=== PATIENT | female | born 1945 | race Caucasian/White ===

== ENCOUNTER 2019-11-08 15:50 | Inpatient (IN) | payer MEDICARE, MEDICAID ==
[~2019-11-08] VITALS: Ht 154.9 cm; Wt 71.7 kg
[2019-11-08] MEDS ORDERED: SODIUM CHLORIDE 0.9% 1,000 ML IV ONE ×2 (17:00→17:30)
[2019-11-08 17:01] LABS: BASOPHILS % 0.3 % (0.0-2.0); HEMATOCRIT. 47.6 % (36.0-48.0); LYMPHOCYTES % 17.9 % (20.0-50.0); MEAN CORPUSCULAR HEMOGLOBIN 33.4 pg (28.0-32.0); MEAN CORPUSCULAR VOLUME 99.2 fL (81.0-99.0); MEAN PLATELET VOLUME 8.9 fl (7.4-10.4); MONOCYTES % 6.5 % (2.0-8.0); NEUTROPHILS % 75.3 % (40.0-76.0); PLATELET 182 x1000/uL (130-400); RED BLOOD CELL COUNT 4.79 mill/uL (4.2-5.4); RED CELL DISTRIBUTION WIDTH 12.2 % (11.6-14.6)
[2019-11-08 17:06] LABS: CHLORIDE 87 mEq/L (98-107)
[2019-11-08 17:07] LABS: INR 1.1; PROTHROMBIN TIME 12.4 sec (9.6-11.0)
[2019-11-08 17:34] LABS: BETA HYDROXYBUTYRATE 1.7 mMol/L (0.0-0.3)
[2019-11-08] MEDS ORDERED: INSULIN REGULAR (DRIP) 100 UNITS in SODIUM CHLORIDE 0.9% 99 ML IV ONE ×2 (17:45→18:00)
[2019-11-08] MEDS ORDERED: SODIUM CHLORIDE 0.9% 1,000 ML IV STA (18:24)
[2019-11-08 19:00] LABS: CLARITY URINE CLEAR (CLEAR); COLOR URINE YELLOW (YELLOW); KETONES URINE NEGATIVE (NEGATIVE); LEUKOCYTE ESTERASE URINE NEGATIVE (NEGATIVE); NITRITE URINE NEGATIVE (NEGATIVE); OCCULT BLOOD URINE NEGATIVE (NEGATIVE); PROTEIN URINE NEGATIVE (NEGATIVE); SPECIFIC GRAVITY URINE 1.028 (1.005-1.030); UROBILINOGEN URINE 0.2 E.U./dL (0.2-1.0)
[2019-11-08] MEDS ORDERED: INSULIN REGULAR (DRIP) 100 UNITS in SODIUM CHLORIDE 0.9% 99 ML IV PRN (19:00)
[2019-11-08] MEDS ORDERED: INSULIN REGULAR (DRIP) 100 UNITS in SODIUM CHLORIDE 0.9% 100 ML IV SCH (19:53)
[2019-11-08] MEDS ORDERED: ZOLPIDEM TARTRATE 5MG TABLET PO PRN (20:00)
[2019-11-08] MEDS ORDERED: ONDANSETRON HCL 4MG/2ML INJ IV PRN (20:00)
[2019-11-08] MEDS ORDERED: CLONIDINE 0.1MG TABLET PO PRN (20:00)
[2019-11-08] MEDS ORDERED: DOCUSATE SODIUM 100MG CAPSULE PO PRN (20:00)
[2019-11-08] MEDS ORDERED: MAGNESIUM/ALUMINUM HYDROXIDE/SIMETHICONE 30ML UDC PO PRN (20:00)
[2019-11-08] MEDS ORDERED: DEXTROSE 50% WATER 50ML SYRINGE IV PRN ×2 (20:00)
[2019-11-08] MEDS ORDERED: KETOROLAC 15MG/ML VIAL IV PRN (20:00)
[2019-11-08] MEDS ORDERED: IPRATROPIUM/ALBUTEROL 0.5-3(2.5)MG/3ML NEB ORI PRN (20:00)
[2019-11-08] MEDS ORDERED: GUAIFENESIN 200MG/10ML SUGAR FREE UDC PO PRN (20:00)
[2019-11-08] MEDS ORDERED: NITROGLYCERIN 0.4MG TABLET SL SL PRN (20:00)
[2019-11-08] MEDS ORDERED: ACETAMINOPHEN 325MG TABLET PO PRN (20:00)
[2019-11-08 20:21] LABS: PHOSPHORUS 4.2 mg/dL (2.5-4.9)
[2019-11-08 20:29] LABS: T4 FREE 1.43 ng/dL (0.76-1.46)
[2019-11-08 20:36] LABS: FOLIC ACID (FOLATE) SERUM >20 ng/mL ng/mL (>5.38)
[2019-11-08 20:48] LABS: VITAMIN B12 SERUM 1477 pg/mL (211-911)
[2019-11-08] MEDS ORDERED: AZITHROMYCIN 500 MG in DEXT 5% WATER 250 ML IV SCH (21:00)
[2019-11-08] MEDS ORDERED: BLOOD SUGAR DIAGNOSTIC STRIP TEST SCH (21:00)
[2019-11-09] MEDS ORDERED: SODIUM CHLORIDE 0.9% 1,000 ML IV NR (00:30)
[2019-11-09 00:33] LABS: CHLORIDE 107 mEq/L (98-107)
[2019-11-09 00:39] LABS: PHOSPHORUS 3.1 mg/dL (2.5-4.9)
[2019-11-09 00:41] LABS: CREATINE KINASE 25 IU/L (26-192)
[2019-11-09 00:44] LABS: CREATINE KINASE MB FRACTION < 1.0 ng/mL (0.5-3.6)
[2019-11-09] MEDS ORDERED: FAMOTIDINE 20MG TABLET PO NR (00:45)
[2019-11-09] MEDS: ENOXAPARIN 30MG/0.3ML SYR SUBCUT SCH ×2 (00:47→20:30)
[2019-11-09] MEDS: ASCORBIC ACID 500 MG TABLET PO SCH ×3 (00:48→20:30)
[2019-11-09] MEDS: SODIUM CHLORIDE 0.9% 1,000 ML IV SCH ×4 (02:52→19:24)
[2019-11-09] MEDS ORDERED: DEXTROSE 50% WATER 50ML SYRINGE IV PRN (06:45)
[2019-11-09] MEDS: BLOOD SUGAR DIAGNOSTIC STRIP TEST SCH ×4 (09:25→20:43)
[2019-11-09 09:49] LABS: CREATINE KINASE 24 IU/L (26-192); CREATINE KINASE MB FRACTION < 1.0 ng/mL (0.5-3.6)
[2019-11-09] MEDS ORDERED: CEFTRIAXONE 1 G PREMIX 50 ML IV SCH (10:00)
[2019-11-09] MEDS: INSULIN GLARGINE UD 100 UNITS/ML SYR SUBCUT SCH (10:08)
[2019-11-09] MEDS: ASPIRIN 325MG EC TABLET PO SCH (10:19)
[2019-11-09] MEDS: FAMOTIDINE 20MG TABLET PO SCH (10:19)
[2019-11-09] MEDS: ZINC SULFATE 220 MG ( 50 ) CAPSULE PO SCH (10:19)
[2019-11-09] MEDS: INSULIN LISPRO 100 UNITS/ML SUBCUT SCH ×5 (13:29→20:52)
[2019-11-09 18:20] VITALS: BP 106/58
[2019-11-09 18:30] VITALS: BP 114/75
[2019-11-09 20:00] VITALS: BP 103/65
[2019-11-09] MEDS ORDERED: AZITHROMYCIN 500 MG in DEXT 5% WATER 250 ML IV SCH (20:00)
[2019-11-09 21:51] VITALS: BP 121/63
[2019-11-10] VITALS (11 sets, daily range): BP systolic 101–154; BP diastolic 61–119
[2019-11-10] MEDS: SODIUM CHLORIDE 0.9% 1,000 ML IV SCH ×3 (00:23→21:10)
[2019-11-10] MEDS: INSULIN LISPRO 100 UNITS/ML SUBCUT SCH ×7 (06:27→22:22)
[2019-11-10] MEDS: BLOOD SUGAR DIAGNOSTIC STRIP TEST SCH ×4 (06:28→21:53)
[2019-11-10 06:58] LABS: BASOPHILS % 0.2 % (0.0-2.0); HEMATOCRIT. 36.5 % (36.0-48.0); HEMOGLOBIN. 12.6 g/dL (12.0-16.0); LYMPHOCYTES % 57.8 % (20.0-50.0); MEAN CORPUSCULAR HEMOGLOBIN 33.6 pg (28.0-32.0); MEAN CORPUSCULAR VOLUME 97.3 fL (81.0-99.0); MEAN PLATELET VOLUME 8.5 fl (7.4-10.4); MONOCYTES % 6.5 % (2.0-8.0); NEUTROPHILS % 34.5 % (40.0-76.0); PLATELET 86 x1000/uL (130-400); RED BLOOD CELL COUNT 3.75 mill/uL (4.2-5.4); RED CELL DISTRIBUTION WIDTH 12.4 % (11.6-14.6)
[2019-11-10 08:02] LABS: CHLORIDE 113 mEq/L (98-107)
[2019-11-10] MEDS: ASCORBIC ACID 500 MG TABLET PO SCH ×2 (08:16→21:08)
[2019-11-10] MEDS: FAMOTIDINE 20MG TABLET PO SCH (08:17)
[2019-11-10] MEDS: ASPIRIN 325MG EC TABLET PO SCH (08:17)
[2019-11-10] MEDS: ZINC SULFATE 220 MG ( 50 ) CAPSULE PO SCH (08:17)
[2019-11-10 08:33] LABS: PHOSPHORUS 1.6 mg/dL (2.5-4.9)
[2019-11-10] MEDS: INSULIN GLARGINE UD 100 UNITS/ML SYR SUBCUT SCH (10:31)
[2019-11-10] MEDS: ACETAMINOPHEN 325MG TABLET PO PRN (11:40)
[2019-11-10] MEDS ORDERED: CEFTRIAXONE 1,000 MG in DEXTROSE 5% WATER 50 ML IV SCH (12:00)
[2019-11-10] MEDS: CEFTRIAXONE 1,000 MG in DEXTROSE 5% WATER 50 ML IV SCH (13:07)
[2019-11-10] MEDS: AZITHROMYCIN 500 MG in DEXT 5% WATER 250 ML IV SCH (14:06)
[2019-11-10] MEDS ORDERED: POTASSIUM PHOS,M-BASIC-D-BASIC 20 MMOL in DEXT 5% WATER 243.3333 ML IV NR (22:00)
[2019-11-11] VITALS (20 sets, daily range): BP systolic 109–159; BP diastolic 57–88
[2019-11-11] MEDS: SODIUM CHLORIDE 0.9% 1,000 ML IV SCH ×3 (04:06→15:49)
[2019-11-11] MEDS: ACETAMINOPHEN 325MG TABLET PO PRN (04:34)
[2019-11-11 05:46] LABS: BASOPHILS % 0.2 % (0.0-2.0); EOSINOPHILS % 1.3 % (0.0-5.0); HEMATOCRIT. 35.6 % (36.0-48.0); HEMOGLOBIN. 12.4 g/dL (12.0-16.0); LYMPHOCYTES % 57.4 % (20.0-50.0); MEAN CORPUSCULAR HEMOGLOBIN 33.5 pg (28.0-32.0); MEAN CORPUSCULAR VOLUME 96.5 fL (81.0-99.0); MEAN PLATELET VOLUME 8.5 fl (7.4-10.4); MONOCYTES % 6.7 % (2.0-8.0); NEUTROPHILS % 34.4 % (40.0-76.0); PLATELET 80 x1000/uL (130-400); RED BLOOD CELL COUNT 3.68 mill/uL (4.2-5.4); RED CELL DISTRIBUTION WIDTH 12.3 % (11.6-14.6)
[2019-11-11 06:00] LABS: CHLORIDE 108 mEq/L (98-107)
[2019-11-11 06:10] LABS: PHOSPHORUS 2.5 mg/dL (2.5-4.9)
[2019-11-11] MEDS: BLOOD SUGAR DIAGNOSTIC STRIP TEST SCH ×4 (06:36→20:56)
[2019-11-11] MEDS: INSULIN LISPRO 100 UNITS/ML SUBCUT SCH ×7 (06:56→21:18)
[2019-11-11] MEDS: ASPIRIN 325MG EC TABLET PO SCH (08:38)
[2019-11-11] MEDS: ASCORBIC ACID 500 MG TABLET PO SCH ×2 (08:38→21:17)
[2019-11-11] MEDS: FAMOTIDINE 20MG TABLET PO SCH (08:38)
[2019-11-11] MEDS: ZINC SULFATE 220 MG ( 50 ) CAPSULE PO SCH (08:38)
[2019-11-11] MEDS ORDERED: LACTULOSE 20G/30ML UDC PO SCH (09:00)
[2019-11-11] MEDS: DOCUSATE SODIUM 100MG CAPSULE PO SCH ×2 (09:13→17:27)
[2019-11-11] MEDS ORDERED: INSULIN GLARGINE UD 100 UNITS/ML SYR SUBCUT SCH (11:00)
[2019-11-11] MEDS: CEFTRIAXONE 1,000 MG in DEXTROSE 5% WATER 50 ML IV SCH (12:33)
[2019-11-11] MEDS: AZITHROMYCIN 500 MG in DEXT 5% WATER 250 ML IV SCH (14:21)
[2019-11-11] MEDS ORDERED: POLYETHYLENE GLYCOL 3350 (17GM) 1 DOSE PACK PO SCH (21:00)
[2019-11-12] MEDS ORDERED: ASPI-1497 PO (02:27)
[2019-11-12] MEDS ORDERED: MULT-1146 MT (02:28)
[2019-11-12] MEDS ORDERED: DOCU250C14 MT (02:28)
[2019-11-12] MEDS ORDERED: insulin (02:29)
[2019-11-12] MEDS ORDERED: TOPUD PO (02:30)
== END 2019-11-11 23:45 | DRG 871 ==
LOC: ER 15:50 → 3WST 19:39 → EDBEDREQTM 19:46 → EDBEDREQ 19:46 → SUPCPDRO 19:52 → EDBEDREQSVC 11-09 08:54 → ENRESERV 11-09 17:07
PROVIDERS: ADMIT Internal Medicine; ATTEND Internal Medicine
DX: A41.9 Sepsis, unspecified organism (principal); E11.00 Type 2 diabetes mellitus with hyperosmolarity without nonketotic hyperglycemic-hyperosmolar coma (NKHHC); G92 Toxic encephalopathy; E43 Unspecified severe protein-calorie malnutrition; N17.0 Acute kidney failure with tubular necrosis; E87.1 Hypo-osmolality and hyponatremia; N39.0 Urinary tract infection, site not specified; E87.5 Hyperkalemia; E83.52 Hypercalcemia; E86.0 Dehydration; E87.8 Other disorders of electrolyte and fluid balance, not elsewhere classified; D69.6 Thrombocytopenia, unspecified; I10 Essential (primary) hypertension; E83.39 Other disorders of phosphorus metabolism; E11.42 Type 2 diabetes mellitus with diabetic polyneuropathy; E83.42 Hypomagnesemia; E87.6 Hypokalemia; R26.9 Unspecified abnormalities of gait and mobility; Z68.29 Body mass index [BMI] 29.0-29.9, adult
CPT/HCPCS: 36415; 71045; 80048; 80053; 80061; 81003; 82010; 82550; 82553; 82607; 82746; 82962; 83036; 83540; 83550; 83605; 83735; 83930; 84100; 84439; 84443; 84484; 85025; 93005; 97161; 97166; 99291; J0456; J0696; J1650; J1815; J3490; J7030; J7050; J7060

== ENCOUNTER 2019-11-11 23:40 | Inpatient (IN) | payer MEDICARE, MEDICAID ==
[~2019-11-11] VITALS: Ht 154.9 cm; Wt 70.8 kg
[2019-11-11 23:55] VITALS: BP 140/77
[2019-11-12] MEDS ORDERED: KETOROLAC 15MG/ML VIAL IV PRN (01:00)
[2019-11-12] MEDS ORDERED: IPRATROPIUM/ALBUTEROL 0.5-3(2.5)MG/3ML NEB HHN PRN (01:00)
[2019-11-12] MEDS ORDERED: ONDANSETRON HCL 4MG/2ML INJ IV PRN (01:00)
[2019-11-12] MEDS ORDERED: ACETAMINOPHEN 325MG TABLET PO PRN (01:00)
[2019-11-12] MEDS ORDERED: NITROGLYCERIN 0.4MG TABLET SL SL PRN (01:15)
[2019-11-12] MEDS ORDERED: MAGNESIUM/ALUMINUM HYDROXIDE/SIMETHICONE 30ML UDC PO PRN (01:15)
[2019-11-12] MEDS ORDERED: GUAIFENESIN 200MG/10ML SUGAR FREE UDC PO PRN (01:15)
[2019-11-12] MEDS ORDERED: DEXTROSE 50% WATER 50ML SYRINGE IV PRN (01:15)
[2019-11-12] MEDS ORDERED: CLONIDINE 0.1MG TABLET PO PRN (01:15)
[2019-11-12] MEDS ORDERED: ZOLPIDEM TARTRATE 5MG TABLET PO PRN (01:15)
[2019-11-12] MEDS: SODIUM CHLORIDE 0.9% 1,000 ML IV SCH (02:08)
[2019-11-12] MEDS ORDERED: ASPI-1497 PO (02:27)
[2019-11-12] MEDS ORDERED: DOCU250C14 MT (02:28)
[2019-11-12] MEDS ORDERED: MULT-1146 MT (02:28)
[2019-11-12] MEDS ORDERED: insulin (02:29)
[2019-11-12] MEDS ORDERED: SODIUM CHLORIDE 0.9% INJ 3ML FLUSH IVF ONE (02:30)
[2019-11-12] MEDS ORDERED: TOPUD PO (02:30)
[2019-11-12] MEDS: AZITHROMYCIN 500 MG in DEXT 5% WATER 250 ML IV SCH (02:42)
[2019-11-12] MEDS: CEFTRIAXONE 1,000 MG in DEXTROSE 5% WATER 50 ML IV SCH (04:00)
[2019-11-12] MEDS: BLOOD SUGAR DIAGNOSTIC STRIP TEST SCH ×4 (06:17→21:08)
[2019-11-12 07:30] VITALS: BP 120/58
[2019-11-12] MEDS: DOCUSATE SODIUM 100MG CAPSULE PO SCH ×4 (08:51→17:00)
[2019-11-12] MEDS: ZINC SULFATE 220 MG ( 50 ) CAPSULE PO SCH (08:52)
[2019-11-12] MEDS: ASPIRIN 325MG EC TABLET PO SCH (08:52)
[2019-11-12] MEDS: ASCORBIC ACID 500 MG TABLET PO SCH ×2 (08:52→21:08)
[2019-11-12] MEDS ORDERED: ENOXAPARIN 30MG/0.3ML SYR SUBCUT SCH (09:00)
[2019-11-12] MEDS: INSULIN LISPRO 100 UNITS/ML SUBCUT SCH ×7 (09:00→21:35)
[2019-11-12 09:16] LABS: BASOPHILS % 0.3 % (0.0-2.0); HEMATOCRIT. 36.4 % (36.0-48.0); HEMOGLOBIN. 12.6 g/dL (12.0-16.0); LYMPHOCYTES % 52.6 % (20.0-50.0); MEAN CORPUSCULAR HEMOGLOBIN 33.4 pg (28.0-32.0); MEAN CORPUSCULAR VOLUME 96.2 fL (81.0-99.0); MEAN PLATELET VOLUME 8.4 fl (7.4-10.4); MONOCYTES % 8.6 % (2.0-8.0); NEUTROPHILS % 36.5 % (40.0-76.0); PLATELET 80 x1000/uL (130-400); RED BLOOD CELL COUNT 3.78 mill/uL (4.2-5.4); RED CELL DISTRIBUTION WIDTH 12.3 % (11.6-14.6)
[2019-11-12 09:21] LABS: CHLORIDE 109 mEq/L (98-107)
[2019-11-12] MEDS: INSULIN GLARGINE UD 100 UNITS/ML SYR SUBCUT SCH (10:31)
[2019-11-12] MEDS: MECLIZINE 12.5MG TABLET PO SCH ×2 (12:54→16:37)
[2019-11-12] MEDS: FAMOTIDINE 20MG TABLET PO SCH (12:54)
[2019-11-12] MEDS ORDERED: POTASSIUM CHLORIDE 20MEQ/PACKET PO NR (13:15)
[2019-11-12] MEDS ORDERED: BISACODYL 5MG TABLET PO PRN (19:15)
[2019-11-12] MEDS ORDERED: NA PHOS,M-B/NA PHOS,DI-BA ENEMA 118ML PR PRN (19:15)
[2019-11-12] MEDS ORDERED: LACTULOSE 20G/30ML UDC PO PRN (19:15)
[2019-11-12] MEDS ORDERED: DOCUSATE SODIUM 100MG CAPSULE PO PRN (19:30)
[2019-11-12 20:00] VITALS: BP 107/58
[2019-11-12] MEDS: POLYETHYLENE GLYCOL 3350 (17GM) 1 DOSE PACK PO SCH (21:08)
[2019-11-13] MEDS: AZITHROMYCIN 500 MG in DEXT 5% WATER 250 ML IV SCH (01:27)
[2019-11-13] MEDS: CEFTRIAXONE 1,000 MG in DEXTROSE 5% WATER 50 ML IV SCH (04:04)
[2019-11-13] MEDS: BLOOD SUGAR DIAGNOSTIC STRIP TEST SCH ×4 (06:21→21:41)
[2019-11-13 08:00] VITALS: BP 139/70
[2019-11-13] MEDS: MECLIZINE 12.5MG TABLET PO SCH ×3 (08:11→16:20)
[2019-11-13] MEDS: DOCUSATE SODIUM 100MG CAPSULE PO SCH ×2 (08:12→16:20)
[2019-11-13] MEDS: ZINC SULFATE 220 MG ( 50 ) CAPSULE PO SCH (08:12)
[2019-11-13] MEDS: ASCORBIC ACID 500 MG TABLET PO SCH ×2 (08:12→21:41)
[2019-11-13] MEDS: ASPIRIN 325MG EC TABLET PO SCH (08:12)
[2019-11-13] MEDS: FAMOTIDINE 20MG TABLET PO SCH (08:13)
[2019-11-13] MEDS: INSULIN LISPRO 100 UNITS/ML SUBCUT SCH ×7 (08:13→21:42)
[2019-11-13] MEDS: POLYETHYLENE GLYCOL 3350 (17GM) 1 DOSE PACK PO SCH (08:14)
[2019-11-13] MEDS: SODIUM CHLORIDE 0.9% 1,000 ML IV SCH (10:20)
[2019-11-13] MEDS: INSULIN GLARGINE UD 100 UNITS/ML SYR SUBCUT SCH (10:56)
[2019-11-13 20:36] VITALS: BP 141/84
[2019-11-14] MEDS: CEFTRIAXONE 1,000 MG in DEXTROSE 5% WATER 50 ML IV SCH (02:27)
[2019-11-14] MEDS: BLOOD SUGAR DIAGNOSTIC STRIP TEST SCH ×4 (06:18→21:31)
[2019-11-14 06:51] LABS: BASOPHILS % 0.4 % (0.0-2.0); EOSINOPHILS % 1.7 % (0.0-5.0); HEMATOCRIT. 30.8 % (36.0-48.0); HEMOGLOBIN. 10.7 g/dL (12.0-16.0); LYMPHOCYTES % 51.2 % (20.0-50.0); MEAN CORPUSCULAR HEMOGLOBIN 33.7 pg (28.0-32.0); MEAN CORPUSCULAR VOLUME 97.2 fL (81.0-99.0); MEAN PLATELET VOLUME 8.8 fl (7.4-10.4); MONOCYTES % 10.6 % (2.0-8.0); NEUTROPHILS % 36.1 % (40.0-76.0); PLATELET 74 x1000/uL (130-400); RED BLOOD CELL COUNT 3.16 mill/uL (4.2-5.4); RED CELL DISTRIBUTION WIDTH 12.4 % (11.6-14.6)
[2019-11-14 07:02] LABS: CHLORIDE 109 mEq/L (98-107)
[2019-11-14 07:11] LABS: PHOSPHORUS 2.1 mg/dL (2.5-4.9)
[2019-11-14 07:12] LABS: LDL CHOLESTEROL 68 mg/dL (5-100); TOTAL IRON BINDING CAPACITY 161 ug/dL (250-450)
[2019-11-14 07:13] LABS: HDL CHOLESTEROL 27 mg/dL (40-59)
[2019-11-14 07:29] LABS: VITAMIN B12 SERUM 702 pg/mL (211-911)
[2019-11-14 07:31] LABS: FERRITIN 220 ng/mL (10-291)
[2019-11-14] MEDS: INSULIN LISPRO 100 UNITS/ML SUBCUT SCH ×7 (07:42→21:00)
[2019-11-14 07:43] LABS: HEPATITIS B SURFACE ANTIGEN NEGATIVE
[2019-11-14] MEDS: AZITHROMYCIN 500 MG TABLET PO SCH (08:05)
[2019-11-14] MEDS: MECLIZINE 12.5MG TABLET PO SCH ×3 (08:05→17:10)
[2019-11-14] MEDS: ZINC SULFATE 220 MG ( 50 ) CAPSULE PO SCH (08:05)
[2019-11-14] MEDS: DOCUSATE SODIUM 100MG CAPSULE PO SCH ×2 (08:05→17:11)
[2019-11-14] MEDS: ASCORBIC ACID 500 MG TABLET PO SCH ×2 (08:05→21:01)
[2019-11-14] MEDS: POLYETHYLENE GLYCOL 3350 (17GM) 1 DOSE PACK PO SCH (08:10)
[2019-11-14 08:12] LABS: HEPATITIS A AB IGM NEGATIVE (NEGATIVE)
[2019-11-14 08:22] VITALS: BP 129/58
[2019-11-14] MEDS: FAMOTIDINE 20MG TABLET PO SCH (09:50)
[2019-11-14] MEDS: ASPIRIN 325MG EC TABLET PO SCH (09:50)
[2019-11-14] MEDS: INSULIN GLARGINE UD 100 UNITS/ML SYR SUBCUT SCH (09:54)
[2019-11-14] MEDS ORDERED: POTASSIUM CHLORIDE 20MEQ TABLET SR PO SCH (12:30)
[2019-11-14] MEDS: POTASSIUM-SODIUM PHOSPHATE POWDER PACKET PO SCH ×2 (12:51→21:01)
[2019-11-14] MEDS: MAGNESIUM OXIDE 400MG TABLET PO SCH ×2 (12:52→17:10)
[2019-11-14] MEDS: SODIUM CHLORIDE 0.9% 1,000 ML IV SCH ×2 (12:52→20:01)
[2019-11-14 14:29] LABS: CLARITY URINE CLEAR (CLEAR); COLOR URINE YELLOW (YELLOW); KETONES URINE NEGATIVE (NEGATIVE); LEUKOCYTE ESTERASE URINE NEGATIVE (NEGATIVE); NITRITE URINE NEGATIVE (NEGATIVE); OCCULT BLOOD URINE NEGATIVE (NEGATIVE); PH URINE 6.5 (4.5-8.0); PROTEIN URINE NEGATIVE (NEGATIVE); SPECIFIC GRAVITY URINE 1.012 (1.005-1.030); UROBILINOGEN URINE 0.2 E.U./dL (0.2-1.0)
[2019-11-14 20:00] VITALS: BP 142/69
[2019-11-15] MEDS: SODIUM CHLORIDE 0.9% 1,000 ML IV SCH ×4 (02:46→21:23)
[2019-11-15] MEDS: CEFTRIAXONE 1,000 MG in DEXTROSE 5% WATER 50 ML IV SCH (02:47)
[2019-11-15] MEDS: BLOOD SUGAR DIAGNOSTIC STRIP TEST SCH ×4 (06:28→21:23)
[2019-11-15 07:53] LABS: BASOPHILS % 0.5 % (0.0-2.0); HEMATOCRIT. 31.6 % (36.0-48.0); HEMOGLOBIN. 10.9 g/dL (12.0-16.0); LYMPHOCYTES % 54.4 % (20.0-50.0); MEAN CORPUSCULAR HEMOGLOBIN 33.7 pg (28.0-32.0); MEAN PLATELET VOLUME 8.5 fl (7.4-10.4); MONOCYTES % 10.9 % (2.0-8.0); NEUTROPHILS % 32.2 % (40.0-76.0); PLATELET 94 x1000/uL (130-400); RED BLOOD CELL COUNT 3.22 mill/uL (4.2-5.4); RED CELL DISTRIBUTION WIDTH 12.5 % (11.6-14.6)
[2019-11-15 08:19] LABS: CHLORIDE 110 mEq/L (98-107)
[2019-11-15 08:23] VITALS: BP 106/60
[2019-11-15 08:27] LABS: PHOSPHORUS 2.4 mg/dL (2.5-4.9)
[2019-11-15] MEDS: POLYETHYLENE GLYCOL 3350 (17GM) 1 DOSE PACK PO SCH (09:00)
[2019-11-15] MEDS: INSULIN LISPRO 100 UNITS/ML SUBCUT SCH ×7 (09:00→21:00)
[2019-11-15] MEDS: ASCORBIC ACID 500 MG TABLET PO SCH ×2 (09:22→21:23)
[2019-11-15] MEDS: MECLIZINE 12.5MG TABLET PO SCH ×3 (09:22→16:23)
[2019-11-15] MEDS: AZITHROMYCIN 500 MG TABLET PO SCH (09:22)
[2019-11-15] MEDS: DOCUSATE SODIUM 100MG CAPSULE PO SCH ×2 (09:22→16:23)
[2019-11-15] MEDS: MAGNESIUM OXIDE 400MG TABLET PO SCH ×3 (09:22→16:23)
[2019-11-15] MEDS: ZINC SULFATE 220 MG ( 50 ) CAPSULE PO SCH (09:22)
[2019-11-15] MEDS: FAMOTIDINE 20MG TABLET PO SCH (09:26)
[2019-11-15] MEDS: INSULIN GLARGINE UD 100 UNITS/ML SYR SUBCUT SCH (10:10)
[2019-11-15] MEDS ORDERED: LANTUSUD SUBCUT (11:13)
[2019-11-15] MEDS ORDERED: FAMO20TA8 PO (11:13)
[2019-11-15] MEDS ORDERED: ASCO500T20 PO (11:13)
[2019-11-15] MEDS ORDERED: INSLIS SUBCUT (11:13)
[2019-11-15] MEDS ORDERED: ZINC220T4 MT (11:16)
[2019-11-15] MEDS: ASPIRIN 325MG EC TABLET PO SCH (12:03)
[2019-11-15] MEDS ORDERED: POTASSIUM CHLORIDE 20MEQ TABLET SR PO NR (18:00)
[2019-11-15] MEDS: POTASSIUM-SODIUM PHOSPHATE POWDER PACKET PO SCH (18:09)
[2019-11-15 20:00] VITALS: BP 141/77
[2019-11-16] MEDS: CEFTRIAXONE 1,000 MG in DEXTROSE 5% WATER 50 ML IV SCH (03:19)
[2019-11-16] MEDS: SODIUM CHLORIDE 0.9% 1,000 ML IV SCH (04:55)
[2019-11-16] MEDS: BLOOD SUGAR DIAGNOSTIC STRIP TEST SCH ×4 (06:39→20:23)
[2019-11-16] MEDS: INSULIN LISPRO 100 UNITS/ML SUBCUT SCH ×7 (06:47→20:28)
[2019-11-16 07:22] LABS: CHLORIDE 112 mEq/L (98-107)
[2019-11-16 07:29] LABS: PHOSPHORUS 2.4 mg/dL (2.5-4.9)
[2019-11-16] MEDS: ASCORBIC ACID 500 MG TABLET PO SCH ×2 (08:27→20:23)
[2019-11-16] MEDS: AZITHROMYCIN 500 MG TABLET PO SCH (08:27)
[2019-11-16] MEDS: ZINC SULFATE 220 MG ( 50 ) CAPSULE PO SCH (08:27)
[2019-11-16] MEDS: FAMOTIDINE 20MG TABLET PO SCH (08:27)
[2019-11-16] MEDS: ASPIRIN 325MG EC TABLET PO SCH (08:28)
[2019-11-16] MEDS: MECLIZINE 12.5MG TABLET PO SCH ×3 (08:28→16:38)
[2019-11-16] MEDS: POTASSIUM-SODIUM PHOSPHATE POWDER PACKET PO SCH (08:28)
[2019-11-16] MEDS: DOCUSATE SODIUM 100MG CAPSULE PO SCH ×2 (08:28→16:38)
[2019-11-16] MEDS: MAGNESIUM OXIDE 400MG TABLET PO SCH (08:28)
[2019-11-16] MEDS: POLYETHYLENE GLYCOL 3350 (17GM) 1 DOSE PACK PO SCH (08:28)
[2019-11-16 08:40] VITALS: BP 116/50
[2019-11-16] MEDS: INSULIN GLARGINE UD 100 UNITS/ML SYR SUBCUT SCH (10:51)
[2019-11-16 20:15] VITALS: BP 118/67
[2019-11-17] MEDS: SODIUM CHLORIDE 0.9% 1,000 ML IV SCH ×3 (01:00→12:26)
[2019-11-17] MEDS ORDERED: CEFTRIAXONE 1 G PREMIX 50 ML IV SCH (03:00)
[2019-11-17] MEDS: BLOOD SUGAR DIAGNOSTIC STRIP TEST SCH ×2 (05:56→12:11)
[2019-11-17] MEDS: INSULIN LISPRO 100 UNITS/ML SUBCUT SCH ×4 (06:00→12:25)
[2019-11-17 07:07] LABS: 25-HYDROXY VITAMIN D3 3.1 ng/mL (.)
[2019-11-17 08:10] VITALS: BP 134/74
[2019-11-17] MEDS: ASPIRIN 325MG EC TABLET PO SCH (09:06)
[2019-11-17] MEDS: AZITHROMYCIN 500 MG TABLET PO SCH (09:06)
[2019-11-17] MEDS: ZINC SULFATE 220 MG ( 50 ) CAPSULE PO SCH (09:06)
[2019-11-17] MEDS: MECLIZINE 12.5MG TABLET PO SCH ×2 (09:06→12:26)
[2019-11-17] MEDS: POLYETHYLENE GLYCOL 3350 (17GM) 1 DOSE PACK PO SCH (09:06)
[2019-11-17] MEDS: DOCUSATE SODIUM 100MG CAPSULE PO SCH (09:06)
[2019-11-17] MEDS: FAMOTIDINE 20MG TABLET PO SCH (09:06)
[2019-11-17] MEDS: ASCORBIC ACID 500 MG TABLET PO SCH (09:06)
[2019-11-17] MEDS: INSULIN GLARGINE UD 100 UNITS/ML SYR SUBCUT SCH (10:44)
[2019-11-17 13:53] VITALS: BP 134/74
== END 2019-11-17 15:05 | disposition home health service (06) | DRG 637 ==
PROVIDERS: ADMIT Physical Medicine & Rehabilitation Spinal Cord Injury Medicine; ATTEND Internal Medicine
DX: E11.00 Type 2 diabetes mellitus with hyperosmolarity without nonketotic hyperglycemic-hyperosmolar coma (NKHHC) (principal); E43 Unspecified severe protein-calorie malnutrition; N18.6 End stage renal disease; N17.9 Acute kidney failure, unspecified; I12.0 Hypertensive chronic kidney disease with stage 5 chronic kidney disease or end stage renal disease; E11.42 Type 2 diabetes mellitus with diabetic polyneuropathy; D69.6 Thrombocytopenia, unspecified; E11.65 Type 2 diabetes mellitus with hyperglycemia; E83.51 Hypocalcemia; E87.6 Hypokalemia; R53.81 Other malaise; D63.8 Anemia in other chronic diseases classified elsewhere; E11.22 Type 2 diabetes mellitus with diabetic chronic kidney disease; R42 Dizziness and giddiness; R53.1 Weakness; R74.0 Nonspecific elevation of levels of transaminase and lactic acid dehydrogenase [LDH]; R26.2 Difficulty in walking, not elsewhere classified; Z79.02 Long term (current) use of antithrombotics/antiplatelets; Z86.73 Personal history of transient ischemic attack (TIA), and cerebral infarction without residual deficits; Z82.49 Family history of ischemic heart disease and other diseases of the circulatory system; Z83.3 Family history of diabetes mellitus; Z99.2 Dependence on renal dialysis; Z68.29 Body mass index [BMI] 29.0-29.9, adult; Z79.899 Other long term (current) drug therapy
CPT/HCPCS: 36415; 76700; 80053; 80061; 81003; 82306; 82607; 82728; 82746; 82962; 83036; 83540; 83550; 83735; 84100; 84134; 84443; 85025; 86705; 86709; 86803; 87340; 93970; 97110; 97116; 97162; 97166; 97530; 97535; J0456; J0696; J1815; J7030; J7060; J8597

== ENCOUNTER 2021-02-23 07:05 | Inpatient (IN) | payer MEDICARE, MEDICAID ==
[2021-02-23] VITALS (12 sets, daily range): BP systolic 128–149; BP diastolic 57–76
[~2021-02-23] VITALS: Ht 154.9 cm; Wt 74.9 kg
[~2021-02-23 07:05] MED LIST: ASCO500T20 PO; ASPI-1497 PO; DOCU250C14 MT; FAMO20TA8 PO; INSLIS SUBCUT; LANTUSUD SUBCUT; MULT-1146 MT; TOPUD PO; ZINC220T4 MT
[2021-02-23] MEDS ORDERED: VALS160T28 PO (08:11)
[2021-02-23] MEDS ORDERED: FAMO20TA8 PO (08:11)
[2021-02-23] MEDS ORDERED: ATOR20TA PO (08:11)
[2021-02-23] MEDS ORDERED: HYDR25TA PO (08:11)
[2021-02-23] MEDS ORDERED: METF-873 PO (08:11)
[2021-02-23] MEDS ORDERED: CLOP-31 PO (08:11)
[2021-02-23] MEDS ORDERED: ASPI-1079 PO (08:11)
[2021-02-23] MEDS ORDERED: INSU100I28 SQ (08:32)
[2021-02-23] MEDS ORDERED: MIDAZOLAM HCL 2 MG/2 ML VIAL ONE (09:20)
[2021-02-23] MEDS ORDERED: FENTANYL CITRATE/PF 50MCG/ML 2ML VIAL ONE (09:20)
[2021-02-23] MEDS ORDERED: LIDOCAINE HCL 1% 20ML VIAL (Pyxis) INJ ONE (09:21)
[2021-02-23] MEDS ORDERED: IODIXANOL 320MG/ML 100 ML BOTTLE IV ONE ×2 (09:21→10:21)
[2021-02-23] MEDS ORDERED: IOHEXOL-300 100 ML BOTTLE ONE (10:05)
[2021-02-23] MEDS ORDERED: ASPIRIN 325MG TABLET ONE (10:29)
[2021-02-23] MEDS ORDERED: CLOPIDOGREL 75MG TABLET ONE (10:29)
[2021-02-23] MEDS ORDERED: CLONIDINE 0.1MG TABLET PO PRN (11:30)
[2021-02-23] MEDS ORDERED: DEXTROSE 50% WATER 50ML SYRINGE IV PRN (11:30)
[2021-02-23] MEDS ORDERED: DOCUSATE SODIUM 250MG CAPSULE PO PRN (11:30)
[2021-02-23] MEDS: BLOOD SUGAR DIAGNOSTIC STRIP TEST SCH ×4 (12:41→20:49)
[2021-02-23] MEDS: INSULIN LISPRO 100 UNITS/ML SUBCUT SCH ×4 (12:42→20:49)
[2021-02-23] MEDS: LOSARTAN POTASSIUM 25 MG TABLET PO SCH (13:17)
[2021-02-23] MEDS: SODIUM CHLORIDE 0.9% 1,000 ML IV SCH (13:17)
[2021-02-23] MEDS ORDERED: NICARDIPINE 100MCG/ML 10ML VIAL (CATH LAB) IV ONE (14:46)
[2021-02-23] MEDS ORDERED: HEPARIN SODIUM 1,000 UNIT/1ML VIAL IV ONE (14:46)
[2021-02-23] MEDS ORDERED: NITROGLYCERIN 50MCG/ML 10ML VIAL (CATH LAB) IV ONE (14:46)
[2021-02-23] MEDS ORDERED: ATORVASTATIN CALCIUM 20MG TABLET PO SCH (21:00)
[2021-02-24] VITALS (9 sets, daily range): BP systolic 130–148; BP diastolic 69–76
[2021-02-24] MEDS: SODIUM CHLORIDE 0.9% 1,000 ML IV SCH ×2 (04:39→08:44)
[2021-02-24 06:03] LABS: HEMATOCRIT. 39.6 % (36.0-48.0); HEMOGLOBIN. 13.3 g/dL (12.0-16.0); MEAN CORPUSCULAR HEMOGLOBIN 33.5 pg (28.0-32.0); MEAN CORPUSCULAR VOLUME 99.8 fL (81.0-99.0); MEAN PLATELET VOLUME 7.6 fl (7.4-10.4); PLATELET 128 x1000/uL (130-400); RED BLOOD CELL COUNT 3.97 mill/uL (4.2-5.4); RED CELL DISTRIBUTION WIDTH 13.2 % (11.6-14.6)
[2021-02-24 06:22] LABS: CHLORIDE 106 mEq/L (98-107)
[2021-02-24] MEDS: BLOOD SUGAR DIAGNOSTIC STRIP TEST SCH ×2 (06:43→12:40)
[2021-02-24] MEDS: INSULIN LISPRO 100 UNITS/ML SUBCUT SCH ×2 (06:43→12:20)
[2021-02-24] MEDS: LOSARTAN POTASSIUM 25 MG TABLET PO SCH (08:44)
[2021-02-24] MEDS ORDERED: ASPIRIN 81MG TABLET PO SCH (09:00)
[2021-02-24] MEDS ORDERED: CLOPIDOGREL 75MG TABLET PO SCH (09:00)
[2021-02-24 11:09] LABS: PLATELET ESTIMATE SLIGHTLY DECREASED
== END 2021-02-24 15:30 | disposition home or self-care (01) | DRG 247 ==
LOC: CCL 07:05 → 3WST 07:06
PROVIDERS: ADMIT Specialist; ATTEND Specialist
PROC: 027034Z Dilation of Coronary Artery, One Artery with Drug-eluting Intraluminal Device, Percutaneous Approach (ICD-10-PCS; principal; 2021-02-23)
PROC: 4A023N7 Measurement of Cardiac Sampling and Pressure, Left Heart, Percutaneous Approach (ICD-10-PCS; 2021-02-23)
PROC: B211YZZ Fluoroscopy of Multiple Coronary Arteries using Other Contrast (ICD-10-PCS; 2021-02-23)
DX: I25.10 Atherosclerotic heart disease of native coronary artery without angina pectoris (principal); E11.9 Type 2 diabetes mellitus without complications; I10 Essential (primary) hypertension; E78.5 Hyperlipidemia, unspecified
CPT/HCPCS: 36415; 80048; 82962; 83036; 83735; 85025; 85347; 92928; 93005; 93454; C1725; C1769; C1874; C1887; C1893; J1644; J2250; J3010; J3490; J7030; Q9967